=== PATIENT | female | born 2000 | race Caucasian/White ===

== ENCOUNTER 2024-11-03 20:32 | Outpatient (CLI) | payer OTHER, SELFPAY ==
[2024-11-03 20:46] VITALS: RESP 16; BMI 39.4
[2024-11-03 20:51] VITALS: BP 143/89; PULSE 87
[2024-11-03 21:21] VITALS: BP 123/74; PULSE 90
[2024-11-03 21:46] VITALS: BP 123/74; PULSE 90; O2SAT 98
== END 2024-11-03 21:46 | disposition home or self-care (01) ==
LOC: OPOB 20:35 → OBGYN 20:36
PROVIDERS: Visit Provider Family Medicine
DX: O26.899 Other specified pregnancy related conditions, unspecified trimester (principal); Z3A.00 Weeks of gestation of pregnancy not specified; R10.9 Unspecified abdominal pain; H53.149 Visual discomfort, unspecified
CPT/HCPCS: 59025; 99211

== ENCOUNTER 2024-11-10 08:36 | Inpatient (IN) | payer OTHER, SELFPAY ==
[2024-11-09 22:00] VITALS: BMI 40.1
[2024-11-09 22:40] VITALS: BP 132/89; PULSE 93
[2024-11-09 22:52] VITALS: BP 125/80; PULSE 91
[2024-11-09 23:07] VITALS: BP 128/75; PULSE 90
[2024-11-09 23:41] LABS: Basophils % 0.2 %; Eosinophils # 0.1 10^3/uL (0.0-0.8); Eosinophils % 0.9 %; Hematocrit 37.8 % (36-47); Lymphocytes % 14.1 %; Mean Corpuscular HGB Conc 33.1 g/dL (30-55); Mean Corpuscular Volume 87.7 fl (85-98); Mean Platelet Volume 10.7 fL (7.4-10.4); Monocytes # 1.2 10^3/uL (0.2-0.9); Monocytes % 8.5 %; Neutrophils # 10.65 10^3/uL (1.8-7.7); Neutrophils % 75.8 %; Nucleated Red Blood Cells % 0 %; Platelet Count 228 10^3/cmm (157-399); Red Blood Count 4.31 10^6/uL (3.85-5.65); Red Cell Distribution Width 14.3 % (12.1-15.1); White Blood Count 14.05 10^3/uL (3.29-11.43)
[2024-11-10] VITALS (100 sets, daily range): BP systolic 92–170; BP diastolic 46–90; PULSE 68–131; RESP 16–40; TEMP 35.9–36.7; O2SAT 98–100
[2024-11-10] MEDS: sodium chloride 0.9% 1,000 ML 999 ML IV ×2 (07:00→07:54)
[2024-11-10] MEDS: ROPivacaine syringe 100 MG/50 ML SYRINGE 10 MG EPIDURAL ×2 (07:59→12:06)
--- NOTE | 2024-11-10 08:04 | P.ANESASSM_ITS ---
Pre-Anesthetic Assessment Height/Weight: Height 5 ft 3 in Weight 227 lb Pulse BP Pulse Ox O2 Del Method 100 118/71 98 Room Air 11/10/24 08:01 11/10/24 08:00 11/10/24 08:01 11/09/24 23:21 Preop Diagnosis: IUP Was Beta Ana taken within 24 hours: N/A Was Clonidine taken within 24 hours: N/A Social No alcohol and No tobacco Exam alert, oriented x 3, clear to auscultation bilaterally and regular rate & rhythm Airway Submandibular: within normal limits Cervical ROM: within normal limits Mallampati: Class II Dentition: full Anesthetic Plan ASA status: 2 Anesthesia: Regional (specify below) Other: G2, P1 here for induction of labor. No issues during Denies any cardiac or pulmonary issues Prior epidural without problems Labs reviewed and acceptable for procedure Plan for routine epidural placement Medications/Allergies Home Medications ?Medication ?Instructions ?Recorded ?Confirmed ?Last Taken ?Type gldyehzm-xjz-Yz-FA 1 mg 1 tab PO 1XD 11/03/24 11/09/24 11/09/24 History tablet Allergies Allergy/AdvReac Type Severity Reaction Status Date / Time NSAIDS (Non-Steroidal Allergy Intermediate ALGY-Rash Verified 11/09/24 22:09 Anti-Inflamma Penicillins Allergy Intermediate ALGY-Rash Verified 11/09/24 22:09 Current Medications Generic Name Dose Route Start Last Admin Trade Name Freq PRN Reason Stop Dose Admin Ropivacaine 100 mg in 50 mls @ 10 mls/hr 11/10/24 07:00 11/10/24 07:59 Naropin Syringe EPIDURAL 10 mls/hr .Q5H AGUSTIN Administration Sodium Chloride 1,000 mls @ 999 mls/hr 11/10/24 06:58 11/10/24 07:54 Sodium Chloride 0.9% IV 999 mls/hr .Q1H1M PRN Administration See label comments PFSH Anesthesia Female Reproductive History : 2 Data Anesthesia 11/09/24 23:10 Short CBC 11/09/24 Range/Units 23:10 WBC 14.05 H (3.29-11.43) 10^3/uL Hgb 12.50 (11.27-16.99) g/dL Hct 37.8 (36-47) % MCV 87.7 (85-98) fl Plt Count 228 (157-399) 10^3/cmm Neut % (Auto) 75.8 % Neut # (Auto) 10.65 H (1.8-7.7) 10^3/uL Cardiac Studies: 2 No Data to Display
--- NOTE | 2024-11-10 08:05 | ANES.PROC ---
Anesthesia Procedures Procedure/Date: 11/10/24 Epidural: Time Out Performed: Yes Consents Signed: Procedure Consent and NPO Consent Consent: requested by attending/covering physician and from patient Lumbar Level: L3-L4 Epidural position: sitting Epidural procedure: sterile prep of area, 1% lidocaine to numb the area, 18 g needle, negative for paresthesia passed, neg for paresthesia, test dose given, 1.5% xylocaine 1:200k epi, 0.2% Ropivacaine bolus ml, placed PCEA, no systemic response, sterile dressing applied and L.U.D. no apparent complications Additional Comments: CSE performed. Loss of resistance received at 7 cm. Following this a 27-gauge spinal needle was introduced into the intrathecal space. 1 cc of 0.25% bupivacaine was injected in the intrathecal space. Epidural catheter was threaded immediately following into the epidural space. Ropivacaine 0.2% was set to 10mL per hour
[2024-11-10] MEDS: ondansetron 2 mg/ML SDV 2 mL 4 MG IVP (09:16)
[2024-11-10] MEDS: dextrose 5%-lactated ringers 1,000 ML 125 ML IV (09:32)
[2024-11-10] MEDS: metoclopramide 5 mg/mL SDV 2 mL 10 MG IV (09:49)
[2024-11-10] MEDS: oxytocin 30 UNIT/500 ML BAG IV (11:45)
--- NOTE | 2024-11-10 13:23 | P.PCNOB_ITS ---
Delivery Note: Date of delivery: November 10, 2024 Pre-delivery diagnoses: 24-year-old -0-0-1 at 39 weeks [place]ota mated gestational age in active labor Post-delivery diagnoses: Status post spontaneous vaginal delivery Procedure: Spontaneous vaginal delivery Delivering Physician: David Ahumada Estimated blood loss (mL): 100 Pre-Delivery Course: The patient presented to the hospital initially for elective induction. Due to the inability of the nurses to care for the patient, her induction was put off. Regardless, she began having cramping to the night and had made cervical change by the morning. An amniotomy was performed. She then progressed to 9 cm and stated 9 cm for several hours. Pitocin was added. She progressed to complete without difficulty. Delivery: DELIVERY: The patient progressed to complete without difficulty. She delivered a male with a weight of 7 pounds 6 ounces with Apgars of 8, 9. The baby was delivered from the KIERA position. The baby's mouth and nose were suctioned shortly after delivery. The baby was placed placed on the mother's abdomen. The cord was then clamped and cut. There was no nuchal cord. There was no meconium. The placenta and 3 vessel cord were delivered intact shortly thereafter. The perineum and vaginal vault were carefully examined. No lacerations were noted. Both the mother and the baby were in stable condition. Post-Delivery Status: Good A&P Assessment and plan (1) Spontaneous vaginal delivery: I anticipate routine care PDMP PDMP Reviewed: Last Reviewed 11/11/24 15:51 EDT by David Ahumada MD Coding Level of Care Code Acute Code for Chg Fwd Diagnoses Spontaneous vaginal delivery O80
--- NOTE | 2024-11-10 13:23 | PM.OPHPUD ---
Labor & Delivery H&P Update Date of Procedure: November 10, 2024 Date H&P Performed: 11/10/24 Admission Diagnosis: Preop diagnosis: IUP Other information: The patient presented to the hospital for induction. Unfortunately, the labor floor was busy enough that there were not nurses available to assist in her induction when she initially arrived. Regardless, she went into labor over the night while she was waiting. And made cervical change. Her has been otherwise unremarkable. Her blood type is O+. Her energy screen was negative. Her 3-hour glucose screen was negative. She is rubella immune. She is GBS negative. The remainder of her infectious disease profile is within normal limits. Related Problem List Diagnoses (1) 39 weeks gestation of : A&P Assessment and plan (1) 39 weeks gestation of : I anticipate routine labor and delivery. Status: Resolved PDMP PDMP Reviewed: Last Reviewed 11/11/24 15:51 EDT by David Ahumada MD
[2024-11-10] MEDS: tranexamic acid 1,000 MG/100 ML PREMIX 600 MG IV (13:25)
[2024-11-10] MEDS: benzocaine-menthol 78 gm Canister 1 SPRAY TOPICAL (15:45)
[2024-11-10] MEDS: lanolin oint 7 gm 1 APPLIC TOPICAL (15:45)
[2024-11-10] MEDS: HYDROcodone-acetaminophen 5-325 mg Tablet PO ×2 (15:45→18:14)
--- NOTE | 2024-11-10 17:44 | PC.NURSE ---
Pt up to bathroom without difficulty. Pt able to void and stoney care performed. Pad changed. Dermaplast applied. Bed linens changed. Pt back to bed and resting comfortably.
[2024-11-10] MEDS: docusate sodium 100 mg Capsule PO (18:15)
[2024-11-11] MEDS: HYDROcodone-acetaminophen 5-325 mg Tablet PO ×3 (00:37→14:29)
[2024-11-11 04:15] LABS: Hematocrit 33.8 % (36-47); Mean Corpuscular HGB Conc 32.5 g/dL (30-55); Mean Corpuscular Hemoglobin 28.9 pg (27-33); Mean Corpuscular Volume 88.7 fl (85-98); Mean Platelet Volume 10.7 fL (7.4-10.4); Platelet Count 185 10^3/cmm (157-399); Red Blood Count 3.81 10^6/uL (3.85-5.65); Red Cell Distribution Width 14.4 % (12.1-15.1); White Blood Count 14.96 10^3/uL (3.29-11.43)
[2024-11-11 04:28] VITALS: BP 137/84; PULSE 68
[2024-11-11] MEDS: acetaminophen 325 mg Tablet 650 MG PO ×2 (04:54→11:57)
[2024-11-11] MEDS: PRENATAL VIT NO.130/IRON/FOLIC 1 EACH TABLET PO (08:38)
[2024-11-11] MEDS: docusate sodium 100 mg Capsule PO (08:38)
[2024-11-11 08:39] VITALS: BP 136/87; PULSE 73
[2024-11-11 14:32] VITALS: BP 120/72; PULSE 68
--- NOTE | 2024-11-11 14:54 | ANE.PACU2 ---
Inpatient post-anesthesia follow up: Airway intact: Yes Vital signs: Temperature 97.9 F Pulse Rate 68 Respiratory Rate 17 Blood Pressure 120/72 Pulse Oximetry 100 Oxygen Delivery Me thod Room Air Oxygen Flow Rate Fraction of Inspir ed Oxygen Hydration adequate: Yes Nausea and vomiting: No Pain level: 1 Mental status: Baseline Epidural Start/End: Epidural Start Date: 11/10/24 Epidural Start Time: 07:48 Epidural End Date: 11/10/24 Epidural End Time: 19:38
[2024-11-11 15:40] VITALS: BP 120/72; PULSE 68; RESP 16; TEMP 36.6; O2SAT 98
--- NOTE | 2024-11-13 11:30 | P.DS_ITS ---
Discharge Providers BLOOD DONOR RECRUITER Date of Admission: 11/10/24 08:36 Date of Discharge: 11/11/24 Attending Provider at Admission: David Ahumada MD Attending Provider at Discharge: David Ahumada MD Diagnoses at Discharge Discharge Diagnosis (1) Spontaneous vaginal delivery: Status: Resolved Reason for Visit Reason for Visit: IOL-elective Hospital Course Hospital Course The patient presented to the hospital for induction. Her induction had to be delayed due to other labors on the labor floor. While was delayed, she went to labor. An amniotomy was performed. An epidural was placed. She progressed to complete without difficulty. She had an unremarkable delivery of a healthy appearing . Her course was also unremarkable. Her bleeding was within normal limits. Her pain was well-controlled. Information Peripartum Data: Delivery Method: Vaginal Physical Exam Narrative: The patient is alert. She appears comfortable. Her heart has a regular rate and rhythm with no murmurs appreciated. Lungs are clear to auscultation bilaterally. Her fundus is firm and below the umbilicus. Urinary Catheter Management: Carlin Latex: Cath Placed During This Visit: yes, but has since been removed by the nurse Reason for Continuing Indwelling Catheter: Decision to DC Catheter Urinary Catheter Date of Insertion: 11/10/24 Urinary Catheter Time of Insertion: 08:50 Date Urinary Catheter Removed: 11/10/24 Time Urinary Catheter Discontinued: 13:00 Discharge Data Studies Completed and Pending Laboratory Results WBC 14.96 10^3/uL (3.29-11.43) H 11/11/24 03:56 RBC 3.81 10^6/uL (3.85-5.65) L 11/11/24 03:56 Hgb 11.00 g/dL (11.27-16.99) L 11/11/24 03:56 Hct 33.8 % (36-47) L 11/11/24 03:56 MCV 88.7 fl (85-98) 11/11/24 03:56 MCH 28.9 pg (27-33) 11/11/24 03:56 MCHC 32.5 g/dL (30-55) 11/11/24 03:56 RDW 14.4 % (12.1-15.1) 11/11/24 03:56 Plt Count 185 10^3/cmm (157-399) 11/11/24 03:56 MPV 10.7 fL (7.4-10.4) H 11/11/24 03:56 Neut % (Auto) 75.8 % 11/09/24 23:10 Lymph % (Auto) 14.1 % 11/09/24 23:10 Holmes % (Auto) 8.5 % 11/09/24 23:10 Eos % (Auto) 0.9 % 11/09/24 23:10 Baso % (Auto) 0.2 % 11/09/24 23:10 Neut # (Auto) 10.65 10^3/uL (1.8-7.7) H 11/09/24 23:10 Lymph # (Auto) 2.0 10^3/uL (0.8-4.8) 11/09/24 23:10 Holmes # (Auto) 1.2 10^3/uL (0.2-0.9) H 11/09/24 23:10 Eos # (Auto) 0.1 10^3/uL (0.0-0.8) 11/09/24 23:10 Baso # (Auto) 0.0 10^3/uL (0.0-0.1) 11/09/24 23:10 Nucleated RBC % (auto) 0 % 11/09/24 23:10 Nucleated RBCs # 0.0 /100WBC 11/09/24 23:10 Vitals Last Vital Signs Temp 98 F 11/11/24 15:40 Pulse 68 11/11/24 15:40 Resp 16 11/11/24 15:40 BP 120/72 11/11/24 15:40 Pulse Ox 98 11/11/24 15:40 O2 Del Method Room Air 11/09/24 23:21 Results Labs OB ([facility]): Obstetrics US 07/27/24 Hct 33.8 % (36-47) L 11/11/24 Hgb 11.00 g/dL (11.27-16.99) L 11/11/24 Plt Count 185 10^3/cmm (157-399) 11/11/24 Discharge Plan Discharge Patient Disposition: Home Condition: Stable Prescriptions: New hydrocodone-acetaminophen 5-325 mg Tablet 1 tab PO Q6H PRN (Reason: Moderate To Severe Pain) Qty: 15 0RF Continued eujvxjzg-wpr-Qt-FA 1 mg Tablet 1 tab PO 1XD Discharge Orders: Discharge Order (Routine); Ordered 11/11/24 Ordered By: David Ahumada Referrals: David Ahumada MD [Physician] - 12/22/24 10:20 am Discharge Diet: Usual diet Discharge Activity: Limit activity as instructed Patient Instructions: Depression (DC), Opioid Safety (DC), Preeclampsia and Eclampsia After Delivery (GEN), Hemorrhage (DC), OB Discharge Report, OB Food/Drug Interaction Guide, OB Care at Home, Opioid Safety, OB Vaginal Deliveries, Abnormal Bleeding Discharge Attestations BLOOD DONOR RECRUITER Time Spent in Discharge Care*: less than 30 min Coding Level of Care Code Acute Code for Chg Fwd Diagnoses Spontaneous vaginal delivery O80
== END 2024-11-11 15:40 | disposition home or self-care (01) | DRG 807 ==
LOC: OPOB 08:36 → OBGYN 08:36
PROVIDERS: Admitting Provider Family Medicine; Visit Provider Family Medicine
DX: O80 Encounter for full-term uncomplicated delivery (principal); Z37.0 Single live birth; Z3A.39 39 weeks gestation of pregnancy
CPT/HCPCS: 36415; 51702; 59025; 59409; 85025; 85027; 96374; 99211; J2405; J2590; J2765; J2795; J3490; J7030; J7121; J9999